=== PATIENT | female | born 1960 | race Two or more races ===

== ENCOUNTER 2017-04-20 11:30 | Inpatient (IN) | payer OTHER ==
[~2017-04-20] VITALS: Ht 149.9 cm; Wt 72.1 kg
[2017-04-28] MEDS ORDERED: EFFEXOR XR75 MG (12:21)
[2017-04-28] MEDS ORDERED: ZETIA10 MG (12:21)
[2017-04-28] MEDS ORDERED: DUREZOL5 ML (12:22)
[2017-04-28] MEDS ORDERED: REFRESH LIQUIGE15 ML (12:22)
[2017-04-29] MEDS ORDERED: OXYC1TAB9 PO (06:12)
[2017-04-29] MEDS ORDERED: HYOSCYAMINE0.125 M1 SL (06:12)
== END 2017-04-29 10:27 | disposition home or self-care (01) | DRG 743 ==
LOC: O/R 04-27 08:22 → OB/GYN 04-27 08:22 → RECOVERY 04-27 10:00 → OB/GYN 04-27 14:06
PROVIDERS: Obstetrics & Gynecology Gynecology
PROC: 0UT70ZZ Resection of Bilateral Fallopian Tubes, Open Approach (ICD-10-PCS; 2017-04-27)
PROC: 0UT20ZZ Resection of Bilateral Ovaries, Open Approach (ICD-10-PCS; 2017-04-27)
PROC: 0UT90ZZ Resection of Uterus, Open Approach (ICD-10-PCS; principal; 2017-04-27 10:00)
DX: D25.1 Intramural leiomyoma of uterus (principal); D25.0 Submucous leiomyoma of uterus; D25.2 Subserosal leiomyoma of uterus; N84.0 Polyp of corpus uteri; N72 Inflammatory disease of cervix uteri; N80.0 Endometriosis of uterus; D27.1 Benign neoplasm of left ovary; N83.291 Other ovarian cyst, right side

== ENCOUNTER 2018-10-30 11:13 | Emergency (ER) | payer OTHER ==
[~2018-10-30] VITALS: Ht 144.8 cm; Wt 68.0 kg
[~2018-10-30 11:13] MED LIST: DUREZOL5 ML; EFFEXOR XR75 MG; HYOSCYAMINE0.125 M1 SL; OXYC1TAB9 PO; REFRESH LIQUIGE15 ML; ZETIA10 MG
[2018-10-30] MEDS ORDERED: ATACAND HCT 321 EAC1 (12:05)
[2018-10-30] MEDS ORDERED: LIPITOR40 MG (12:06)
== END 2018-10-30 16:29 | disposition home or self-care (01) ==
LOC: ER 11:13
DX: S50.01XA Contusion of right elbow, initial encounter (principal); W22.8XXA Striking against or struck by other objects, initial encounter; Y93.89 Activity, other specified; Y92.018 Other place in single-family (private) house as the place of occurrence of the external cause; Y99.8 Other external cause status

== ENCOUNTER 2022-08-30 13:02 | Emergency (ER) | payer OTHER ==
[~2022-08-30] VITALS: Ht 149.9 cm; Wt 72.6 kg
[~2022-08-30 13:02] MED LIST changes: +ATACAND HCT 321 EAC1; +LIPITOR40 MG
[2022-08-30] MEDS ORDERED: ATIVAN0.5 M1 (13:15)
[2022-08-30] MEDS ORDERED: AVAPRO75 MG (13:15)
[2022-08-30] MEDS ORDERED: GLIMEPIRIDE1 MG (13:16)
== END 2022-08-30 16:54 ==
LOC: ER 13:02
DX: M54.50 Low back pain, unspecified (principal); I10 Essential (primary) hypertension; E78.00 Pure hypercholesterolemia, unspecified; Z91.041 Radiographic dye allergy status; Z91.013 Allergy to seafood; Z88.2 Allergy status to sulfonamides; F41.8 Other specified anxiety disorders; M62.838 Other muscle spasm

== ENCOUNTER 2024-03-29 21:03 | Emergency (ER) | payer OTHER ==
[~2024-03-29] VITALS: Ht 152.4 cm; Wt 81.6 kg
[~2024-03-29 21:03] MED LIST changes: +ATIVAN0.5 M1; +AVAPRO75 MG; +GLIMEPIRIDE1 MG
[2024-03-29] MEDS ORDERED: JANUMET 50-1,01 EACH PO (21:34)
[2024-03-29] MEDS ORDERED: DICY20TA PO (21:53)
[2024-03-29] MEDS ORDERED: ZOFRAN8 MG PO (21:53)
[2024-03-29] MEDS ORDERED: PROTONIX40 MG PO (21:53)
[2024-03-29] MEDS ORDERED: FAMOtidine 10 MG/ML (4ML VIAL) IV PUSH ONE (22:00)
[2024-03-29] MEDS ORDERED: ONDANSETRON HCL 2 MG/ML VIAL IM ONE (22:00)
[2024-03-29] MEDS ORDERED: DICYCLOMINE HCL 20 MG TABLET PO ONE (22:00)
[2024-03-29] MEDS ORDERED: DICYCLOMINE HCL 10 MG CAPSULE PO ONE (22:27)
[2024-03-29] MEDS ORDERED: ONDANSETRON HCL 2 MG/ML VIAL ONE (22:27)
[2024-03-29] MEDS ORDERED: FAMOTIDINE/PF 20 MG/2 ML VIAL ONE (22:28)
== END 2024-03-29 22:49 | disposition home or self-care (01) ==
LOC: ER 21:05
DX: K29.70 Gastritis, unspecified, without bleeding (principal); Z91.041 Radiographic dye allergy status; Z88.2 Allergy status to sulfonamides; Z91.013 Allergy to seafood; Z91.018 Allergy to other foods; I10 Essential (primary) hypertension; E11.9 Type 2 diabetes mellitus without complications; Z79.84 Long term (current) use of oral hypoglycemic drugs
CPT/HCPCS: 96365; 99282; J2405; J3490

== ENCOUNTER 2024-06-17 16:04 | Emergency (ER) | payer OTHER ==
[~2024-06-17] VITALS: Ht 147.3 cm; Wt 68.0 kg
[~2024-06-17 16:04] MED LIST changes: +DICY20TA PO; +JANUMET 50-1,01 EACH PO; +PROTONIX40 MG PO; +ZOFRAN8 MG PO
[2024-06-17] MEDS ORDERED: SODIUM CHLORIDE 0.45 % 500 ML IV SCH (17:45)
[2024-06-17 18:24] LABS: HEMATOCRIT 38.1 % (36.0-45.00); HEMOGLOBIN 12.6 g/dL (12.0-15.00); MEAN CELL VOLUME 89.5 fL (80.00-100.00); MEAN CORPUSCULAR HEMOGLOBIN 29.6 pg (27.00-32.0); MEAN CORPUSCULAR HGB CONC 33.1 g/dl (32.0-36.0); PLATELET COUNT 284 K/uL (150-450); RED BLOOD COUNT 4.26 M/uL (4.00-6.00); RED CELL DISTRIBUTION WIDTH 13.6 % (11.5-14.5)
[2024-06-17 18:42] LABS: CALCIUM 9.4 mg/dL (8.5-10.1); POTASSIUM 4.3 mEq/L (3.5-5.1)
[2024-06-17 18:52] LABS: ALBUMIN 3.9 gm/dL (3.4-5.0); BILIRUBIN TOTAL 0.49 mg/dL (0.3-1.2); CREATININE SERUM 0.7 mg/dL (0.55-1.02); GFR 83.98; GLOBULINA 3.6 G/DL (2.4-3.5); TOTAL PROTEIN 7.5 gm/dL (6.4-8.2)
== END 2024-06-17 21:44 | disposition home or self-care (01) ==
LOC: ER 16:05
PROVIDERS: Emergency Medicine
DX: F19.29 Other psychoactive substance dependence with unspecified psychoactive substance-induced disorder (principal); I10 Essential (primary) hypertension; E11.9 Type 2 diabetes mellitus without complications; Z91.018 Allergy to other foods

== ENCOUNTER 2024-06-22 11:17 | Emergency (ER) | payer OTHER ==
[~2024-06-22] VITALS: Ht 149.9 cm; Wt 68.0 kg
[2024-06-22] MEDS ORDERED: IRBESARTAN-HCT1 EAC1 PO (11:52)
[2024-06-22] MEDS ORDERED: JANUMET 50-5001 EACH PO (11:53)
[2024-06-22] MEDS ORDERED: VENLAFAXINE HC150 MG PO (11:53)
[2024-06-22] MEDS ORDERED: HYDROCODONE/CHLORPHEN P-STIREX 5 ML ML PO STA (12:04)
[2024-06-22 12:40] LABS: HEMATOCRIT 37.3 % (36.0-45.00); HEMOGLOBIN 12.5 g/dL (12.0-15.00); MEAN CELL VOLUME 88.6 fL (80.00-100.00); MEAN CORPUSCULAR HEMOGLOBIN 29.6 pg (27.00-32.0); MEAN CORPUSCULAR HGB CONC 33.5 g/dl (32.0-36.0); PLATELET COUNT 223 K/uL (150-450); RED BLOOD COUNT 4.21 M/uL (4.00-6.00); RED CELL DISTRIBUTION WIDTH 13.5 % (11.5-14.5)
[2024-06-22 13:29] LABS: COVID-19 AG NEGATIVE (NEGATIVE)
[2024-06-22 13:32] LABS: INFLUENZA A AG POSITIVE (NEGATIVE)
[2024-06-22] MEDS ORDERED: ACETAMINOPHEN 500 MG GEL..CAP PO ONE (13:46)
== END 2024-06-22 13:55 | disposition home or self-care (01) ==
LOC: ER 11:44
DX: J10.1 Influenza due to other identified influenza virus with other respiratory manifestations (principal); R51.9 Headache, unspecified; Z20.822 Contact with and (suspected) exposure to COVID-19; I10 Essential (primary) hypertension; E11.9 Type 2 diabetes mellitus without complications; Z79.84 Long term (current) use of oral hypoglycemic drugs; Z91.018 Allergy to other foods